=== PATIENT | female | born 1965 | race Caucasian/White ===

== ENCOUNTER 2017-11-28 20:47 | Emergency (ER) | payer OTHER ==
[~2017-11-28] VITALS: Ht 154.9 cm; Wt 95.3 kg
[~2017-11-28 20:47] MED LIST: FLEXERIL PO; HYDROCODONE-AP1 EAC6 PO; NASONEX17 GM NASAL; NORCO 5-325 TA1 EAC1 PO
[2017-11-28 21:55] LABS: ABSOLUTE BASOPHILS 0.1 thou/uL (0.0-0.2); ABSOLUTE EOSINOPHILS 0.1 thou/uL (0.0-0.7); ABSOLUTE LYMPHOCYTES 1.9 thou/uL (0.8-5.3); ABSOLUTE MONOCYTES 1.2 thou/uL (0.0-1.2); ABSOLUTE NEUTROPHILS 9.8 thou/uL (1.6-8.1); BASOPHILS 0.7 %; EOSINOPHILS 0.9 %; HEMATOCRIT 46.9 % (37.0-47.0); HEMOGLOBIN 15.9 gm/dL (12.0-15.0); LYMPHOCYTES 14.2 %; MCH 30.9 pg (26.0-34.0); MCHC 33.9 g/dL (28.0-37.0); MPV 7.6 fl. (7.2-11.1); NUCLEATED RBCS 0 /100WBC; PLATELET COUNT* 247 thou/uL (150-400); POLYS 75.2 %; RBC 5.15 mil/uL (4.20-5.00); RDW-CV 13.1 % (10.5-14.5); WBC 13.1 thou/uL (4.0-11.0)
[2017-11-28 22:08] LABS: ANION GAP 8 mmol/L (7-16); BUN 9 mg/dL (7-18); CALCIUM 8.6 mg/dL (8.5-10.1); CHLORIDE 102 mmol/L (98-107); CO2 27 mmol/L (21-32); CREATININE 0.8 mg/dL (0.6-1.3); GLUCOSE 130 mg/dL (70-99); POTASSIUM 3.6 mmol/L (3.5-5.1); SODIUM 137 mmol/L (136-145)
[2017-11-28 22:15] LABS: ALBUMIN 3.7 g/dL (3.4-5.0); ALKALINE PHOSPHATASE 89 U/L (46-116); SGOT 30 U/L (15-37); SGPT 50 U/L (30-65); TOTAL BILIRUBIN 0.8 mg/dL (<0.1-1.0); TOTAL PROTEIN 8.3 g/dL (6.4-8.2); TROPONIN-I LEVEL <0.06 ng/mL (<0.06)
[2017-11-29] MEDS ORDERED: AUGMENTIN 875-1 EACH PO (00:01)
[2017-11-29 01:02] VITALS: BP 127/73
--- NOTE | 2017-11-29 14:19 | EKG ---
[place] [address] ELECTROCARDIOGRAM REPORT Name: CURTIS BANEGAS Room: [facility]#: [id number] Admission: 11/28/17 Attend Phys: Discharge: 11/29/17 Date of : 67 Report #: [id number] THIS REPORT FOR: //name// [facility] ED Test Date: 2017-11-28 Test Time: 21:55:44 Pat Name: CURTIS BANEGAS Department: Room: Gender: F Certified Technician Specialist: GARY : 1965 Requested By: Santy Torres Order Number: [id number] MD: Massimo Johnson Measurements Intervals [place] Rate: 100 P: 42 SD: 128 QRS: 57 QRSD: 95 T: -89 QT: 325 QTc: 420 Interpretive Statements Sinus tachycardia Nonspecific T abnormalities, diffuse leads Compared to ECG 04/11/2008 08:55:47 T-wave abnormality now present Sinus rhythm no longer present Electronically Signed On 11-29-2017 14:19:10 CDT by Massimo Johnson [email or web address] <ELECTRONICALLY SIGNED> By: Massimo Johnson MD, [facility] 11/29/17 1419 [id number] Massimo Johnson MD, [facility] /EPI
== END 2017-11-29 01:03 | disposition home or self-care (01) ==
LOC: M.ERS 20:47
PROVIDERS: Nurse Practitioner Family
DX: J32.9 Chronic sinusitis, unspecified (principal); R07.89 Other chest pain; F17.210 Nicotine dependence, cigarettes, uncomplicated; Z88.5 Allergy status to narcotic agent; Z90.710 Acquired absence of both cervix and uterus